=== PATIENT | female | born 1965 | race Caucasian/White ===

== ENCOUNTER → 2020-11-07 | Outpatient (CLI) | payer OTHER ==
--- NOTE | 2020-11-07 16:36 | RAD ---
EXAMINATION: MG DIGITAL BILAT DIAGNOSTIC MAMMO WITH MARIA GUADALUPE, US BREAST BILAT History: Follow-up Comparison: Outside mammogram and ultrasound 09/28/2019. Technique: Bilateral digital diagnostic mammogram views were obtained. CAD was utilized. 3-D tomosyn thesis images were acquired. Bilateral focused breast ultrasound performed. Findings: Mammogram: Breast Tissue Density C : The breasts are heterogeneously dense, which may obscure small masses. There are bilateral retropectoral implants. There are nodular focal asymmetries in the lower inner ri ght breast at middle depth tomosynthesis views. Asymmetry in the posterior medial left breast is unch anged. No suspicious calcifications or architectural distortion. Ultrasound: Right breast: There are 3 ovoid circumscribed hypoechoic parallel masses in the lower inner right ronny ast, measurements and locations below: 4:00, 1 cm from the nipple: 0.8 x 0.7 x 0.3 cm. 5:00, 7 cm from the nipple: 0.6 x 0.5 x 0.3 cm. 5:00 6 cm from the nipple: 1.5 x 0.6 x 0.3 cm. No right axillary lymphadenopathy. Left breast: 2 ovoid circumscribed hypoechoic mass parallel in orientation in the left breast are unc hanged, measurements and locations below: 10:00, 5 cm from the nipple: 0.9 x 0.7 x 0.4 cm. 5:00, 5 cm from the nipple: 0.6 x 0.4 x 0.2 cm. No left axillary lymphadenopathy. IMPRESSION: Probably benign circumscribed hypoechoic masses bilaterally, possibly fibroadenomas. The left breast masses are unchanged. Recommend 6 month follow-up bilateral breast ultrasound to ensure stability. BI-RADS category 3: Probably benign. The images were reviewed with computer aided detection. Patient information is entered into the reminder system with a target due date for the next screening mammogram. Mammography is the most sensitive method for finding small breast cancers, but it does not detect the m all and is not a substitute for careful clinical examination. A negative mammogram does not negate a clinically suspicious finding and should not result in delay in biopsying a clinically suspicious a bnormality. "Our facility is accredited by the [employer] Mammography Program." Electronically signed by: Amanda Deleon MD (11/07/2020 4:34 PM) [id number]
== END ==
LOC: MAMMO 10:11
PROVIDERS: ATTEND Physician Assistant Medical
DX: N63.20 Unspecified lump in the left breast, unspecified quadrant (principal)
CPT/HCPCS: 76641; 77066; G0279; 77062